=== PATIENT | male | born 1960 | race Caucasian/White ===

== ENCOUNTER 2016-10-05 05:45 | Observation (INO) | payer OTHER ==
[~2016-10-05] VITALS: Ht 175.3 cm; Wt 136.1 kg
[~2016-10-05 05:45] MED LIST: ATOR80TA PO; COUM6TAB PO; FURO20TA PO; GLUCTAB PO; IPRAAER IN; KLOR20TA6 PO; LOSA50TA PO; MEDR4PAK3 PO; PANT40IN3 PO; SPIR50TA21 PO; TAZT300C2 PO; WARF5TAB PO; Z.0.OXYGEN INH
[2016-10-05] MEDS ORDERED: MUPIROCIN 2% OINT 1 APPLIC/GM SYR NASAL SCH (06:15)
[2016-10-05] MEDS ORDERED: METOPROLOL TARTRATE 25 MG TAB PO PRN (06:15)
[2016-10-05] MEDS ORDERED: SODIUM CHLORID 0.9% 500 ML IV SCH (06:15)
[2016-10-05] MEDS ORDERED: NS 1000 ML IV SCH (06:15)
[2016-10-05] MEDS ORDERED: INSULIN HUMAN REGULAR 1,000 UNITS/10 ML VIAL SQ PRN (06:15)
[2016-10-05] MEDS ORDERED: LACTATED RINGER'S 1000 ML IV SCH (06:15)
[2016-10-05] MEDS ORDERED: LORazepam 1 MG TAB SL SCH ×2 (06:15→06:30)
[2016-10-05] MEDS ORDERED: NO Heparin, Lovenox, Coumadin at least 12 hours prior to procedure. XX PRN (06:30)
[2016-10-05] MEDS ORDERED: ceFAZolin 2 GM PREMIX 50 ML IV SCH (06:30)
[2016-10-05] MEDS ORDERED: POVIDONE IODINE 5% (ANTISEPSIS KIT) 4 APPLICATIONS EACH NARE SCH (06:30)
[2016-10-05] MEDS ORDERED: CHLORHEXIDINE GLUCONATE 2 % 1 PACK (2 CLOTHS) TOP SCH (06:30)
[2016-10-05] MEDS ORDERED: Hold AM Insulin & AM Hypoglycemic medications in diabetic patients XX PRN (06:30)
[2016-10-05] MEDS ORDERED: VANCOMYCIN 1000 MG/NS 250 ML IV SCH ×2 (06:30)
[2016-10-05 07:05] LABS: AUTOMATED NEUTROPHIL # 9.5 TH/MM3 (1.8-7.7); BASOPHIL # 0.1 TH/MM3 (0-0.2); BASOPHIL % 0.5 % (0.0-2.0); EOSINOPHIL # 0.3 TH/MM3 (0-0.4); EOSINOPHIL % 2.3 % (0.0-4.0); HEMATOCRIT 33.5 % (39.0-51.0); HEMO FLAGS DIFF FINAL; LYMPH % 13.3 % (9.0-44.0); LYMPHOCYTE # 1.7 TH/MM3 (1.0-4.8); MEAN CELL VOLUME 87.9 FL (80.0-100.0); MEAN CORPUSCULAR HEMOGLOBIN 29.6 PG (27.0-34.0); MEAN CORPUSCULAR HGB CONC 33.7 % (32.0-36.0); MONO % 7.9 % (0.0-8.0); PLATELET COUNT 250 TH/MM3 (150-450); RED BLOOD COUNT 3.81 MIL/MM3 (4.50-5.90); RED CELL DISTRIBUTION WIDTH 14.4 % (11.6-17.2); WHITE BLOOD COUNT 12.5 TH/MM3 (4.0-11.0)
[2016-10-05 07:14] LABS: APTT (PATIENT) 32.2 SEC (24.3-30.1); INTERNATIONAL NORMALIZED RATIO 2.3 RATIO; PROTHROMBIN TIME - PATIENT 26.4 SEC (9.8-11.6)
[2016-10-05 07:31] VITALS: BP 137/89; PULSE 89; RESP 18; TEMP 97.9; O2SAT 94
[2016-10-05 07:31] LABS: BICARBONATE 38.1 MEQ/L (21.0-32.0); POTASSIUM 4.1 MEQ/L (3.5-5.1)
[2016-10-05] MEDS ORDERED: WARF-23 PO (07:40)
[2016-10-05] MEDS ORDERED: METF500T PO (07:40)
[2016-10-05] MEDS ORDERED: LOSA50TA PO (07:40)
[2016-10-05] MEDS ORDERED: FURO1TAB62 PO (07:40)
[2016-10-05] MEDS ORDERED: SPIR50TA PO (07:40)
[2016-10-05] MEDS ORDERED: PANT40TA3 PO (07:40)
[2016-10-05] MEDS ORDERED: DILT60TA33 PO (07:40)
[2016-10-05] MEDS ORDERED: LIPI80TA PO (07:40)
--- NOTE | 2016-10-05 09:43 | HHI.HP ---
[facility] Primary [facility] Physician No Primary Care Physician Admission Diagnosis Diagnoses: Travel History International Travel<30 Days: No Contact w/Intl Traveler <30 Da: No Traveled to Known Affected Are: No Sepsis Criteria SIRS Criteria (2 or more): WBC > 75044, < 4000 or > 10% bands History of Present Illness Mr. Bellamy is a pleasant 56-year-old male with a history of hypertension , Hyperlipidemia, atrial fibrillation who was a scheduled for AV lam ablation with pacemaker insertion today. However patient has been having persistent shortness of breath and thus hospitalist service was requested to admit patient with regards to CHF/COPD exacerbation. Patient denies any chest pain, fever or chills. He does report shortness of breath on exertion. He denies any significant leg swelling. Denies any changes in bowel or bladder habits. He is on 2-3 L of oxygen at home. Review of Systems ROS Limitations: Other Except as stated in HPI: all other systems reviewed are Neg Past Family Social History Past Medical History Atrial fibrillation, diabetes mellitus, hypertension, hyperlipidemia, GERD Past Surgical History No significant surgical history Reported Medications Losartan 50 mg daily Warfarin 5 mg daily Metformin 500 mg twice a day Diltiazem 60 mg 3 times a day Atorvastatin 80 mg daily at bedtime Furosemide 20 mg twice a day Spironolactone 50 mg twice a day Pantoprazole 40 mg daily Allergies: Coded Allergies: No Known Allergies (Verified , 10/05/16) Family History Father had CHF. at age 52. Mother is still living but not well. Social History Patient has a history of smoking more than 40 years. Quit smoking 3 years ago. Denies using alcohol. Denies using illicit drugs. Physical Exam Vital Signs Vital Signs Date Time Temp Pulse Resp B/P Pulse Ox O2 Delivery O2 Flow Rate FiO2 10/05/16 07:31 97.9 89 18 137/89 94 Physical Exam GENERAL: This is a well-nourished, well-developed patient, in no apparent distress. SKIN: No rashes, ecchymoses or lesions. Warm and dry. HEAD: Atraumatic. Normocephalic. No temporal or scalp tenderness. EYES: Pupils equal round and reactive. No injection or drainage. ENT: Nose without bleeding, purulent drainage or septal hematoma. Airway patent. NECK: Trachea midline. No lymphadenopathy. Supple, nontender, no meningeal signs. CARDIOVASCULAR: Regular rate and rhythm without murmurs, gallops, or rubs. No JVD. RESPIRATORY: Poor air entry. No significant wheezing, crackles noted. GASTROINTESTINAL: Abdomen soft, non-tender, nondistended. No guarding. MUSCULOSKELETAL: Extremities without clubbing, cyanosis. Trace edema in proximity. NEUROLOGICAL: Awake and alert. Cranial nerves II through XII intact. No focal neurological deficits. Normal speech. Laboratory Laboratory Tests Test 10/05/16 06:44 White Blood Count 12.5 Red Blood Count 3.81 Hemoglobin 11.3 Hematocrit 33.5 Mean Corpuscular Volume 87.9 Mean Corpuscular Hemoglobin 29.6 Mean Corpuscular Hemoglobin 33.7 Concent Red Cell Distribution Width 14.4 Platelet Count 250 Mean Platelet Volume 8.6 Neutrophils (%) (Auto) 76.0 Lymphocytes (%) (Auto) 13.3 Monocytes (%) (Auto) 7.9 Eosinophils (%) (Auto) 2.3 Basophils (%) (Auto) 0.5 Neutrophils # (Auto) 9.5 Lymphocytes # (Auto) 1.7 Monocytes # (Auto) 1.0 Eosinophils # (Auto) 0.3 Basophils # (Auto) 0.1 CBC Comment DIFF FINAL Differential Comment Prothrombin Time 26.4 Prothromb Time International 2.3 Ratio Activated Partial 32.2 Thromboplast Time Sodium Level 135 Potassium Level 4.1 Chloride Level 92 Carbon Dioxide Level 38.1 Anion Gap 5 Blood Urea Nitrogen 16 Creatinine 0.87 Estimat Glomerular Filtration 90 Rate Random Glucose 104 Calcium Level 8.9 Blood Type A POSITIVE Antibody Screen NEGATIVE Result Diagram: 10/05/1644 10/05/1644 Imaging Last Impressions Chest X-Ray 10/05/16 0934 Signed Impressions: Service Date/Time: Wednesday, October 05, 2016 10:09 - CONCLUSION: No significant change compared to 04/09/16. Greg Franco MD Assessment and Plan Problem List: (1) COPD exacerbation ICD Code: J44.1 Status: Acute (2) Atrial fibrillation ICD Code: I48.91 Status: Chronic (3) Diabetes mellitus ICD Code: E11.9 Status: Acute Assessment and Plan Mr. Bellamy is a pleasant 56 year old male with a history of Afib, diastolic CHF who came to the hospital today for AV lam ablation and pacemaker placement. However, due to persistent shortness of breath, ablation/ pacemaker insertion was postponed and hospitalist service was asked to admit patient for CHF/COPD. - COPD exacerbation - Patient's symptoms are more consistent with COPD exacerbation. CXR, reviewed by me shows unremarkable findings except flattened diaphragm. - BNP is 49. - Will start patient on DuoNeb Q4hrs while awake and Q2HR PRN. - Start patient on a 5 day course of Prednisone 20mg BID. - Start patient on 7 day course of Levaquin 500mg Qday. - Diastolic CHF - stable at this point. - Will continue home medications including Lasix and Spironolactone. - Limited echo was unfortunately not good quality. No meaningful information obtained from Echo. Previously FAREED in 2014 showed EF 55-60%. - Diabetic mellitus - Patient takes metformin. We will continue metformin as we do not anticipate any imaging or work up that would require contrast. - Atrial fibrillation - Continue Diltiazem, Warfarin. INR 2.3. - Hyperlipidemia - Hypertension - Continue Losartan, Lipitor. Full code. Warfarin. INR 2.3 Yovana Centeno DO Oct 05, 2016 9:43 am
[2016-10-05] MEDS ORDERED: SODIUM CHLORIDE 0.9% FLUSH 5 ML FLUSH FLUSH PRN (09:45)
[2016-10-05] MEDS ORDERED: NALOXONE HCL 0.4 MG/ML AMP IV PRN (09:45)
[2016-10-05] MEDS ORDERED: ONDANSETRON HCL 4 MG/2 ML VIAL IVP PRN (09:45)
[2016-10-05] MEDS ORDERED: BISACODYL 10 MG SUPP PR PRN (09:45)
[2016-10-05] MEDS ORDERED: RESP: ALBUTEROL 2.5 MG/IPRATROPIUM 0.5 MG NEB (PRN) NEB (09:45)
[2016-10-05] MEDS ORDERED: MAGNESIUM HYDROXIDE SUSP 30 ML CUP PO PRN (09:45)
[2016-10-05] MEDS ORDERED: ACETAMINOPHEN 325 MG TAB PO PRN (09:45)
[2016-10-05 09:53] VITALS: O2SAT 95
--- NOTE | 2016-10-05 10:00 | EKG ---
Date Performed: 10/05/2016 Time Performed: 07:09:36 PTAGE: 56 years EKG: Sinus rhythm with frequent PVCs with PAC(s) Indeterminate axis Right bundle branch block Generalized low QRS volt ages Abnormal ECG PREVIOUS TRACING : 04/09/2016 13.44 DOCTOR: Sebastian Quiñonez Interpretating Date/Time 10/05/2016 09:58:12
--- NOTE | 2016-10-05 10:47 | RADRPT ---
EXAM DATE/TIME: 10/05/2016 10:09 [facility] COMPARISON: CHEST SINGLE AP, April 09, 2016, 14:14. INDICATIONS: Short of breath MEDICAL HISTORY: Chronic obstructive pulmonary disease. Congestive heart failure. SURGICAL HISTORY: None. ENCOUNTER: Initial ACUITY: 1 day PAIN SCORE: 0/10 LOCATION: Bilateral chest FINDINGS: The heart and mediastinal structures are stable. The pulmonary vascular pattern is normal. Mild inc reased bibasilar markings are stable. No new alveolar consolidation is noted. CONCLUSION: No significant change compared to 04/09/16. Greg Franco MD on October 05, 2016 at 10:32 Board Certified Radiologist. This report was verified electronically.
[2016-10-05 14:30] VITALS: BP 132/86; PULSE 55; RESP 18; TEMP 97.9; O2SAT 96
[2016-10-05] MEDS: DILTIAZEM HCL 60 MG TAB PO SCH ×2 (15:18→18:22)
--- NOTE | 2016-10-05 16:07 | ECHLIM ---
Study Study Date:10/05/2016 STUDY CONCLUSIONS SUMMARY - Procedure narrative: Transthoracic echocardiography. Image quality was very poor. Scanning was performed from the parasternal, apical, and subcostal acoustic windows. - Left ventricle: The cavity size was normal. Wall thickness was normal. Systolic function was very difficult to assess. Grossly left ventricular function appears mild to moderately reduced. Ejection fraction cannot be estimated. If clinically indicated, recommend radionuclide ventriculography for better assessment of ejection fraction. - Aortic valve: Poorly visualized. If LV function is below 40, please consider prescribing an ACEI or ARB or document rationale for non-use. PROCEDURE DATA STUDY STATUS: Elective. Procedure: Transthoracic echocardiography. Image quality was very poor. Scanning was performed from the parasternal, apical, and subcostal acoustic windows. Study completion: The patient tolerated the procedure well. Transthoracic echocardiography. M-mode, complete 2D, complete spectral Doppler, and color Doppler. Height: Height: 69in. Weight: Weight: 298.4lb. Body mass index: BMI: 44.2kg/m^2. Body surface area: BSA: 2.45m^2. Patient status: Inpatient. CARDIAC ANATOMY LEFT VENTRICLE: The cavity size was normal. Wall thickness was normal. Systolic function was very difficult to assess. Grossly left ventricular function appears mild to moderately reduced. Ejection fraction cannot be estimated. If clinically indicated, recommend radionuclide ventriculography for better assessment of ejection fraction. Images were inadequate for LV wall motion assessment. AORTIC VALVE: Poorly visualized. Doppler: Transvalvular velocity was within the normal range. There was no stenosis. No regurgitation. AORTA: Aortic root: The aortic root was normal in size. MITRAL VALVE: Structurally normal valve. Doppler: Transvalvular velocity was within the normal range. There was no evidence for stenosis. No regurgitation. LEFT ATRIUM: The atrium was normal in size. RIGHT VENTRICLE: The cavity size was normal. Wall thickness was normal. PULMONIC VALVE: Doppler: Transvalvular velocity was within the normal range. There was no evidence for stenosis. No regurgitation. TRICUSPID VALVE: Structurally normal valve. Doppler: Transvalvular velocity was within the normal range. No regurgitation. PULMONARY ARTERY: The main pulmonary artery was normal-sized. Systolic pressure was within the normal range. RIGHT ATRIUM: The atrium was normal in size. PERICARDIUM: There was no pericardial effusion. SYSTEMIC VEINS: Inferior vena cava: The vessel was normal in size. Patient weight: 298.4lb _Ejection fraction:_ 65-75% _Fractional shortening:_ 32% up to 5Kg 5-11.5Kg 11.6-22.9Kg 23-45Kg 45-57Kg Aortic Root 7-13 <17 13-22 17-27 17-27 LA diam 6-13 <23 24-38 33-47 37-40 RVID 10-17 7-15 7-15 7-18 8-17 LVIDd 12-22 <32 24-38 33-47 37-40 LVPW 2-4 3-6 5-7 6-8 7-8 IVS 2-4 3-6 5-7 6-8 7-8 BASIC MEASUREMENTS ADULT NORMAL Left ventricle LV internal dimension, ED, chordal level, *57.7 mm 43-52 PLAX LV internal dimension, ES, chordal level, *49.6 mm 23-38 PLAX Fractional shortening, chordal level, PLAX *14 % >29 LV posterior wall thickness, ED 10.1 mm IVS/LVPW ratio, ED 1.15 <1.3 Ventricular septum Septal thickness, ED 11.6 mm LEGEND: Mean values are shown as u=mean value. Asterisk (*) stubbs values outside specified normal range. Prepared and signed by Sterling Roberson [id number]
[2016-10-05] MEDS: RESP: ALBUTEROL 2.5 MG/IPRATROPIUM 0.5 MG NEB (SCH) NEB ×2 (17:24→21:11)
[2016-10-05] MEDS: SPIRONOLACTONE 50 MG TAB PO SCH (18:22)
[2016-10-05] MEDS: metFORMIN HCL 500 MG TAB PO SCH (18:22)
[2016-10-05 20:00] VITALS: BP 112/75; PULSE 90; PULSE 95; RESP 20; TEMP 97.4; O2SAT 94
[2016-10-05] MEDS: SODIUM CHLORIDE 0.9% FLUSH 5 ML FLUSH FLUSH SCH (20:33)
[2016-10-05] MEDS: ATORVASTATIN 80 MG TAB PO SCH (20:33)
[2016-10-05] MEDS: predniSONE 20 MG TAB PO SCH (20:33)
[2016-10-05 21:14] VITALS: O2SAT 94
[2016-10-05] MEDS: SODIUM CHLORID 0.9% 500 ML INJ 500 ML IV SCH (22:55)
[2016-10-06] VITALS (12 sets, daily range): BP systolic 99–140; BP diastolic 51–78; PULSE 86–125; RESP 18–20; TEMP 97.2–97.8; O2SAT 90–100
[2016-10-06] MEDS: RESP: ALBUTEROL 2.5 MG/IPRATROPIUM 0.5 MG NEB (PRN) NEB ×2 (04:15→23:20)
[2016-10-06] MEDS: RESP: ALBUTEROL 2.5 MG/IPRATROPIUM 0.5 MG NEB (SCH) NEB ×4 (07:57→20:27)
[2016-10-06] MEDS: DILTIAZEM HCL 60 MG TAB PO SCH ×3 (08:51→18:15)
[2016-10-06] MEDS: SPIRONOLACTONE 50 MG TAB PO SCH ×2 (08:51→18:14)
[2016-10-06] MEDS: predniSONE 20 MG TAB PO SCH ×2 (08:51→22:36)
[2016-10-06] MEDS: metFORMIN HCL 500 MG TAB PO SCH ×2 (08:52→18:15)
[2016-10-06] MEDS: LEVOFLOXACIN 500 MG TAB PO SCH (08:52)
[2016-10-06] MEDS: PANTOPRAZOLE SOD 40 MG DELAYED RELEASE TAB PO SCH (08:52)
[2016-10-06 08:54] LABS: BICARBONATE 37.8 MEQ/L (21.0-32.0); POTASSIUM 4.5 MEQ/L (3.5-5.1)
[2016-10-06 08:57] LABS: AUTOMATED NEUTROPHIL # 9.8 TH/MM3 (1.8-7.7); BASOPHIL # 0.1 TH/MM3 (0-0.2); BASOPHIL % 0.4 % (0.0-2.0); EOSINOPHIL % 0.3 % (0.0-4.0); HEMATOCRIT 34.5 % (39.0-51.0); HEMO FLAGS DIFF FINAL; LYMPHOCYTE # 1.3 TH/MM3 (1.0-4.8); MEAN CELL VOLUME 87.7 FL (80.0-100.0); MEAN CORPUSCULAR HEMOGLOBIN 29.2 PG (27.0-34.0); MEAN CORPUSCULAR HGB CONC 33.4 % (32.0-36.0); MONO % 5.9 % (0.0-8.0); NEUT % 82.4 % (16.0-70.0); PLATELET COUNT 231 TH/MM3 (150-450); RED BLOOD COUNT 3.93 MIL/MM3 (4.50-5.90); RED CELL DISTRIBUTION WIDTH 14.6 % (11.6-17.2); WHITE BLOOD COUNT 11.9 TH/MM3 (4.0-11.0)
[2016-10-06] MEDS: SODIUM CHLORIDE 0.9% FLUSH 5 ML FLUSH FLUSH SCH ×2 (09:00→22:41)
[2016-10-06] MEDS: LOSARTAN 50 MG TAB PO SCH (09:00)
[2016-10-06] MEDS ORDERED: PNEUMOCOCCAL POLYVALENT INJ 25 MCG/0.5 ML SYR IM ONE (10:00)
[2016-10-06] MEDS ORDERED: INFLUENZA VIRUS VACCINE (QUADRIVALENT) 0.5 ML SYR IM ONE (10:00)
--- NOTE | 2016-10-06 13:53 | HHI.PR ---
Subjective Remarks Follow-up for COPD exacerbation, atrial fibrillation. Patient is currently doing well sitting in his chair. Denies any chest pain, shortness of breath, fever or chills. His heart rate has been in the 120s range. Objective Vitals Vital Signs Date Time Temp Pulse Resp B/P Pulse Ox O2 Delivery O2 Flow Rate FiO2 10/06/16 08:00 97.8 124 20 140/72 92 10/06/16 08:00 95 Nasal Cannula 4.00 10/06/16 04:17 91 Nasal Cannula 4.00 10/06/16 04:00 97.6 93 20 106/77 94 10/06/16 00:00 97.7 118 18 120/78 90 10/05/16 21:14 94 Nasal Cannula 4.00 10/05/16 20:30 Nasal Cannula 10/05/16 20:00 90 10/05/16 20:00 97.4 95 20 112/75 94 10/05/16 14:30 97.9 55 18 132/86 96 I/O 10/05/16 10/05/16 10/05/16 10/06/16 10/06/16 10/06/16 07:00 15:00 23:00 07:00 15:00 23:00 Intake Total 240 ml Balance 240 ml Intake Oral 240 ml # Voids 2 1 # Bowel Movements 0 0 Result Diagram: 10/06/16 0757 10/06/16 0753 Imaging Last Impressions Chest X-Ray 10/05/16 0934 Signed Impressions: Service Date/Time: Wednesday, October 05, 2016 10:09 - CONCLUSION: No significant change compared to 04/09/16. Greg Franco MD Objective Remarks GENERAL: Alert, oriented 3, NAD. SKIN: Warm and dry. HEAD: Normocephalic. EYES: No scleral icterus. No injection or drainage. NECK: Supple, trachea midline. No JVD or lymphadenopathy. CARDIOVASCULAR: Irregularly irregular Without murmurs, gallops, or rubs. RESPIRATORY: Breath sounds equal bilaterally. No accessory muscle use. GASTROINTESTINAL: Abdomen soft, non-tender, nondistended. MUSCULOSKELETAL: No cyanosis. Trace edema. BACK: Nontender without obvious deformity. No CVA tenderness. Procedures None. A/P Problem List: (1) COPD exacerbation ICD Code: J44.1 Status: Acute (2) Atrial fibrillation ICD Code: I48.91 Status: Chronic (3) Diabetes mellitus ICD Code: E11.9 Status: Acute Assessment and Plan Mr. Bellamy is a pleasant 56 year old male with a history of Afib, diastolic CHF who came to the hospital today for AV lam ablation and pacemaker placement. However, due to persistent shortness of breath, ablation/ pacemaker insertion was postponed and hospitalist service was asked to admit patient for CHF/COPD. - COPD exacerbation - Patient's symptoms are more consistent with COPD exacerbation. CXR, reviewed by me shows unremarkable findings except flattened diaphragm. - BNP is 49. - Will start patient on DuoNeb Q4hrs while awake and Q2HR PRN. - Continue a 5 day course of Prednisone 20mg BID. - Continue 7 day course of Levaquin 500mg Qday. - Diastolic CHF - stable at this point. - Will continue home medications including Lasix and Spironolactone. - Limited echo was unfortunately not good quality. No meaningful information obtained from Echo. Previously FAREED in 2014 showed EF 55-60%. - Diabetic mellitus - Patient takes metformin. We will continue metformin as we do not anticipate any imaging or work up that would require contrast. - Atrial fibrillation - Continue Diltiazem, Warfarin. INR 2.3 yesterday. Will repeat INR tomorrow AM. - Will add metoprolol 25mg Q8hrs. Most COPD patients tolerate metoprolol well. Instructed pt to let his RN know if there is any problem with metoprolol. - If rate control is better, we can discharge patient home tomorrow 2016. - Hyperlipidemia - Hypertension - Continue Losartan, Lipitor. Full code. Warfarin. INR 2.3 on 10/05/2016. Repeat INR on 10/07/2016. Yovana Centeno DO Oct 06, 2016 1:53 pm
[2016-10-06] MEDS: METOPROLOL TARTRATE 25 MG TAB PO SCH ×2 (13:54→22:40)
[2016-10-06] MEDS: WARFARIN SOD 5 MG TAB PO SCH (18:14)
[2016-10-06] MEDS: ATORVASTATIN 80 MG TAB PO SCH (22:35)
[2016-10-07] VITALS (9 sets, daily range): BP systolic 101–123; BP diastolic 55–97; PULSE 96–124; RESP 18–21; TEMP 97.3–98; O2SAT 93–98
[2016-10-07] MEDS: METOPROLOL TARTRATE 25 MG TAB PO SCH ×3 (05:41→21:53)
[2016-10-07 07:39] LABS: INTERNATIONAL NORMALIZED RATIO 1.5 RATIO; PROTHROMBIN TIME - PATIENT 16.6 SEC (9.8-11.6)
[2016-10-07] MEDS: RESP: ALBUTEROL 2.5 MG/IPRATROPIUM 0.5 MG NEB (SCH) NEB ×4 (08:04→20:49)
[2016-10-07] MEDS: SODIUM CHLORIDE 0.9% FLUSH 5 ML FLUSH FLUSH SCH ×2 (11:26→21:00)
[2016-10-07] MEDS: SPIRONOLACTONE 50 MG TAB PO SCH (11:27)
[2016-10-07] MEDS: DILTIAZEM HCL 60 MG TAB PO SCH ×3 (11:28→17:27)
[2016-10-07] MEDS: predniSONE 20 MG TAB PO SCH ×2 (11:28→21:53)
[2016-10-07] MEDS: LOSARTAN 50 MG TAB PO SCH ×2 (11:28→11:35)
[2016-10-07] MEDS: metFORMIN HCL 500 MG TAB PO SCH ×2 (11:29→17:24)
[2016-10-07] MEDS: PANTOPRAZOLE SOD 40 MG DELAYED RELEASE TAB PO SCH (11:29)
[2016-10-07] MEDS: LEVOFLOXACIN 500 MG TAB PO SCH (11:29)
--- NOTE | 2016-10-07 16:28 | HHI.PR ---
Subjective Remarks Follow up for COPD, Afib. Mr. Bellamy is doing well. No chest pain, SOB, fever, chills. He still gets short of breath on exertion but feels his breathing is better. No heart palpitations. Objective Vitals Vital Signs Date Time Temp Pulse Resp B/P Pulse Ox O2 Delivery O2 Flow Rate FiO2 10/07/16 11:35 97.8 120 21 103/58 97 10/07/16 08:06 98 Nasal Cannula 4.00 10/07/16 08:00 97.6 120 20 101/55 97 10/07/16 04:17 97.3 118 18 104/72 95 10/06/16 23:42 97.2 122 18 119/63 94 10/06/16 22:41 Nasal Cannula 10/06/16 22:38 119 127/65 10/06/16 20:29 92 Nasal Cannula 4.00 10/06/16 20:25 97.4 123 18 100/60 100 10/06/16 20:20 122 I/O 10/06/16 10/06/16 10/06/16 10/07/16 10/07/16 10/07/16 07:00 15:00 23:00 07:00 15:00 23:00 Intake Total 480 ml 240 ml 120 ml Output Total 300 ml Balance 480 ml 240 ml -180 ml Intake Oral 480 ml 240 ml 120 ml Output Urine Total 300 ml # Voids 1 1 2 # Bowel Movements 0 1 1 0 Result Diagram: 10/06/16 0757 10/06/16 0753 Imaging Last Impressions Chest X-Ray 10/05/16 0934 Signed Impressions: Service Date/Time: Wednesday, October 05, 2016 10:09 - CONCLUSION: No significant change compared to 04/09/16. Greg Franco MD Objective Remarks GENERAL: Alert, oriented 3, NAD. SKIN: Warm and dry. HEAD: Normocephalic. EYES: No scleral icterus. No injection or drainage. NECK: Supple, trachea midline. No JVD or lymphadenopathy. CARDIOVASCULAR: Irregularly irregular Without murmurs, gallops, or rubs. RESPIRATORY: Breath sounds equal bilaterally. No accessory muscle use. GASTROINTESTINAL: Abdomen soft, non-tender, nondistended. MUSCULOSKELETAL: No cyanosis. Trace edema. BACK: Nontender without obvious deformity. No CVA tenderness. Procedures None. A/P Problem List: (1) COPD exacerbation ICD Code: J44.1 Status: Acute (2) Atrial fibrillation ICD Code: I48.91 Status: Chronic (3) Diabetes mellitus ICD Code: E11.9 Status: Acute Assessment and Plan Mr. Bellamy is a pleasant 56 year old male with a history of Afib, diastolic CHF who came to the hospital today for AV lam ablation and pacemaker placement. However, due to persistent shortness of breath, ablation/ pacemaker insertion was postponed and hospitalist service was asked to admit patient for CHF/COPD. - COPD exacerbation - Patient's symptoms are more consistent with COPD exacerbation. CXR, reviewed by me shows unremarkable findings except flattened diaphragm. - BNP is 49. - Continue patient on DuoNeb Q4hrs while awake and Q2HR PRN. - Continue a 5 day course of Prednisone 20mg BID. - Continue 7 day course of Levaquin 500mg Qday. - Diastolic CHF - stable at this point. - Hold Lasix and Aldactone for now. Will re-introduce if BP is improved. - Limited echo was unfortunately not good quality. No meaningful information obtained from Echo. Previously FAREED in 2015 showed EF 55-60%. - Diabetic mellitus - Patient takes metformin. We will continue metformin as we do not anticipate any imaging or work up that would require contrast. - Chronic Atrial fibrillation - Continue Diltiazem, On Warfarin. - Increase metoprolol to 50mg Q12hrs. - Increase Diltiazem from 60mg TID to 60mg Q6hrs. - Hyperlipidemia - Hypertension - Continue Losartan 25mg Qday, Lipitor. Full code. Warfarin Yovana Centeno DO Oct 07, 2016 16:28 Yovana Centeno DO Oct 07, 2016 4:28 pm
[2016-10-07] MEDS: WARFARIN SOD 5 MG TAB PO SCH (17:23)
[2016-10-07] MEDS: ATORVASTATIN 80 MG TAB PO SCH (21:53)
--- NOTE | 2016-10-08 00:20 | HHI.PR ---
Subjective Remarks Patient seen around 1:30PM. Follow up for Afib, COPD. He is doing well from respiratory standpoint. He is able to ambulate in the room, go to the bathroom well. His heart rate still remains high - in the 120s range. No fever, chills. Denies any chest pain. Objective Vitals Vital Signs Date Time Temp Pulse Resp B/P Pulse Ox O2 Delivery O2 Flow Rate FiO2 10/07/16 20:49 96 Nasal Cannula 3.00 10/07/16 20:45 Nasal Cannula 3.00 10/07/16 20:40 97.3 124 20 115/81 94 10/07/16 16:00 98.0 96 18 123/74 93 10/07/16 12:00 93 Nasal Cannula 3.00 10/07/16 11:35 97.8 120 21 103/58 97 10/07/16 08:06 98 Nasal Cannula 4.00 10/07/16 08:00 97.6 120 20 101/55 97 10/07/16 04:17 97.3 118 18 104/72 95 I/O 10/07/16 10/07/16 10/07/16 10/08/16 10/08/16 10/08/16 07:00 15:00 23:00 07:00 15:00 23:00 Intake Total 120 ml 960 ml 720 ml Output Total 300 ml 1000 ml Balance -180 ml -40 ml 720 ml Intake Oral 120 ml 960 ml 720 ml IV Total 0 ml Output Urine Total 300 ml 1000 ml # Voids 3 # Bowel Movements 0 0 1 Result Diagram: 10/06/16 0757 10/06/16 0753 Imaging Last Impressions Chest X-Ray 10/05/16 0934 Signed Impressions: Service Date/Time: Wednesday, October 05, 2016 10:09 - CONCLUSION: No significant change compared to 04/09/16. Greg Franco MD Objective Remarks GENERAL: Alert, oriented 3, NAD. SKIN: Warm and dry. HEAD: Normocephalic. EYES: No scleral icterus. No injection or drainage. NECK: Supple, trachea midline. No JVD or lymphadenopathy. CARDIOVASCULAR: Irregularly irregular Without murmurs, gallops, or rubs. RESPIRATORY: Breath sounds equal bilaterally. No accessory muscle use. GASTROINTESTINAL: Abdomen soft, non-tender, nondistended. MUSCULOSKELETAL: No cyanosis. Trace edema. BACK: Nontender without obvious deformity. No CVA tenderness. Procedures None. A/P Problem List: (1) COPD exacerbation ICD Code: J44.1 Status: Acute (2) Atrial fibrillation ICD Code: I48.91 Status: Chronic (3) Diabetes mellitus ICD Code: E11.9 Status: Acute Assessment and Plan Mr. Bellamy is a pleasant 56 year old male with a history of Afib, diastolic CHF who came to the hospital today for AV lam ablation and pacemaker placement. However, due to persistent shortness of breath, ablation/ pacemaker insertion was postponed and hospitalist service was asked to admit patient for CHF/COPD. - COPD exacerbation - Patient's symptoms are more consistent with COPD exacerbation. CXR, reviewed by me shows unremarkable findings except flattened diaphragm. - BNP is 49. - Continue patient on DuoNeb Q4hrs while awake and Q2HR PRN. - Continue a 5 day course of Prednisone 20mg BID. - Continue 7 day course of Levaquin 500mg Qday. - Patient is doing well from COPD standpoint. - Diastolic CHF - stable at this point. - Hold Lasix and Aldactone for now. Will re-introduce if BP is improved. - Limited echo was unfortunately not good quality. No meaningful information obtained from Echo. Previously FAREED in 2015 showed EF 55-60%. - Diabetic mellitus - Patient takes metformin. We will continue metformin as we do not anticipate any imaging or work up that would require contrast. - Chronic Atrial fibrillation - Continue Diltiazem, On Warfarin. - Increase metoprolol to 50mg Q12hrs. - Increase Diltiazem from 60mg TID to 60mg Q6hrs. - Hyperlipidemia - Hypertension - Continue Losartan 25mg Qday, Lipitor. Full code. Warfarin Discharge plan: Patient was admitted due to respiratory issues. Patient can be discharged. However, his heart rate remains in the 120s. I have attempted to call/text Dr. Jolly. Waiting to hear from him. Yovana Centeno DO Oct 08, 2016 12:20 am
[2016-10-08] MEDS: SODIUM CHLORID 0.9% 500 ML INJ 500 ML IV SCH (00:55)
[2016-10-08] MEDS: DILTIAZEM HCL 60 MG TAB PO SCH ×3 (00:58→12:00)
[2016-10-08] MEDS: RESP: ALBUTEROL 2.5 MG/IPRATROPIUM 0.5 MG NEB (PRN) NEB (02:27)
[2016-10-08 04:00] VITALS: BP 112/66; PULSE 104; RESP 20; TEMP 97.3; O2SAT 94
[2016-10-08 07:53] VITALS: O2SAT 93
[2016-10-08] MEDS: RESP: ALBUTEROL 2.5 MG/IPRATROPIUM 0.5 MG NEB (SCH) NEB ×3 (07:53→15:35)
[2016-10-08 08:00] VITALS: BP 122/88; PULSE 120; RESP 18; TEMP 97.4; O2SAT 94
[2016-10-08] MEDS ORDERED: LOSARTAN 25 MG TAB PO SCH (09:00)
[2016-10-08] MEDS: SODIUM CHLORIDE 0.9% FLUSH 5 ML FLUSH FLUSH SCH (09:00)
[2016-10-08] MEDS ORDERED: METOPROLOL TARTRATE 25 MG TAB PO SCH (09:00)
[2016-10-08] MEDS: LEVOFLOXACIN 500 MG TAB PO SCH (09:09)
[2016-10-08] MEDS: predniSONE 20 MG TAB PO SCH (09:09)
[2016-10-08] MEDS: PANTOPRAZOLE SOD 40 MG DELAYED RELEASE TAB PO SCH (09:11)
[2016-10-08] MEDS: metFORMIN HCL 500 MG TAB PO SCH (09:13)
[2016-10-08 12:00] VITALS: BP 90/62; PULSE 110; RESP 20; TEMP 97.4; O2SAT 96
[2016-10-08] MEDS ORDERED: CARD240C6 PO (15:30)
[2016-10-08] MEDS ORDERED: PRED20 PO (15:30)
[2016-10-08] MEDS ORDERED: LEVA500T PO (15:30)
--- NOTE | 2016-10-08 15:33 | HHI.DS ---
Discharge Summary Admission Date Oct 05, 2016 at 2:35 pm Discharge Date: Oct 08, 2016 Admitting Diagnosis COPD exacerbation (1) COPD exacerbation ICD Code: J44.1 (2) Atrial fibrillation ICD Code: I48.91 (3) Diabetes mellitus ICD Code: E11.9 Procedures None. Brief History - From Admission Mr. Bellamy is a pleasant 56-year-old male with a history of hypertension , Hyperlipidemia, atrial fibrillation who was a scheduled for AV lam ablation with pacemaker insertion today. However patient has been having persistent shortness of breath and thus hospitalist service was requested to admit patient with regards to CHF/COPD exacerbation. Patient denies any chest pain, fever or chills. He does report shortness of breath on exertion. He denies any significant leg swelling. Denies any changes in bowel or bladder habits. He is on 2-3 L of oxygen at home. CBC/BMP: 10/06/16 0757 10/06/16 0753 Significant Findings Laboratory Tests Test 10/06/16 10/06/16 10/07/16 07:53 07:57 06:10 Chloride Level 94 MEQ/L (98-107) Carbon Dioxide Level 37.8 MEQ/L (21.0-32.0) Anion Gap 4 MEQ/L (5-15) White Blood Count 11.9 TH/MM3 (4.0-11.0) Red Blood Count 3.93 MIL/MM3 (4.50-5.90) Hemoglobin 11.5 GM/DL (13.0-17.0) Hematocrit 34.5 % (39.0-51.0) Neutrophils (%) (Auto) 82.4 % (16.0-70.0) Neutrophils # (Auto) 9.8 TH/MM3 (1.8-7.7) Prothrombin Time 16.6 SEC (9.8-11.6) Imaging Last Impressions Chest X-Ray 10/05/16 0950 Signed Impressions: Service Date/Time: Wednesday, October 05, 2016 10:09 - CONCLUSION: No significant change compared to 04/09/16. Greg Franco MD PE at Discharge GENERAL: Alert, oriented 3, NAD. SKIN: Warm and dry. HEAD: Normocephalic. EYES: No scleral icterus. No injection or drainage. NECK: Supple, trachea midline. No JVD or lymphadenopathy. CARDIOVASCULAR: Irregularly irregular Without murmurs, gallops, or rubs. RESPIRATORY: Breath sounds equal bilaterally. No accessory muscle use. GASTROINTESTINAL: Abdomen soft, non-tender, nondistended. MUSCULOSKELETAL: No cyanosis. Trace edema. BACK: Nontender without obvious deformity. No CVA tenderness. Pt update on day of discharge Mr. Bellamy is doing well. He is ambulating better without getting short of breath. Discussed with Dr. Jolly who stated that patient's heart rate is difficult to control and thus he was planning to do AV lam ablation and place a pacemaker. Dr. Jolly agreed with our plan to discharge patient on long acting CCB and follow up with him in the office with regards to AV lam ablation and pacemaker placement. Hospital Course Mr. Bellamy is a pleasant 56 year old male with a history of Afib, diastolic CHF who came to the hospital today for AV lam ablation and pacemaker placement. However, due to persistent shortness of breath, ablation/ pacemaker insertion was postponed and hospitalist service was asked to admit patient for CHF/COPD. - COPD exacerbation - Patient's symptoms are more consistent with COPD exacerbation. CXR, reviewed by me shows unremarkable findings except flattened diaphragm. - BNP is 49. - Continue patient on DuoNeb Q4hrs while awake and Q2HR PRN. - Continue a 5 day course of Prednisone 20mg BID. - Continue 7 day course of Levaquin 500mg Qday. - Patient is doing well from COPD standpoint. - Diastolic CHF - stable at this point. - Hold Lasix and Aldactone for now. Will re-introduce if BP is improved. - Limited echo was unfortunately not good quality. No meaningful information obtained from Echo. Previously FAREED in 2015 showed EF 55-60%. - Diabetic mellitus - Patient takes metformin. We will continue metformin as we do not anticipate any imaging or work up that would require contrast. - Chronic Atrial fibrillation - Continue Diltiazem, On Warfarin. - Long acting CCB on discharge. Discussed with Dr. Jolly prior to discharging patient home. - Hyperlipidemia - Hypertension - Continue Losartan 25mg Qday, Lipitor. Full code. Warfarin Pt Condition on Discharge: Good Discharge Disposition: Discharge Home Discharge Time: > 30 minutes Discharge Instructions DIET: Follow Instructions for: Heart Healthy Diet Activities you can perform: Regular-No Restrictions Follow up Referrals: Cardiology - 3-5 Days with Antione Jolly MD New Medications: Diltiazem CD 24 HR (Cardizem CD 24 HR) 240 Mg Caper 240 MG PO BID Atrial fibrillation #30 Ref 0 CAP Levofloxacin (Levaquin) 500 Mg Tab 500 MG PO DAILY COPD #4 TAB Prednisone (Prednisone) 20 Mg Tab 20 MG PO BID Inflammation #2 TAB Continued Medications: Atorvastatin (Lipitor) 80 Mg Tab 80 MG PO HS Cholesterol Management #30 Ref 0 TAB Metformin (Metformin) 500 Mg Tab 500 MG PO BIDPC With meals Blood Sugar Management #60 Ref 0 TAB Pantoprazole (Pantoprazole) 40 Mg Tab 40 MG PO DAILY Reflux #30 Ref 0 TAB Warfarin (Warfarin) 5 Mg Tab 5 MG PO DAILY Blood Clot Prevention #30 Ref 0 TAB Discontinued Medications: Diltiazem (Cardizem) 60 Mg Tab 60 MG PO TID Angina #120 Ref 0 TAB Furosemide (Lasix) 20 Mg Tab 20 MG PO BID #60 Ref 0 TAB Losartan (Losartan) 50 Mg Tab 50 MG PO DAILY Blood Pressure Management #30 Ref 0 TAB Spironolactone (Spironolactone) 50 Mg Tab 50 MG PO BIDPC #60 Ref 0 TAB Yovana Centeno DO Oct 08, 2016 15:33
[2016-10-08 16:00] VITALS: BP 93/67; PULSE 100; RESP 20; TEMP 98; O2SAT 97
--- NOTE | 2016-10-12 09:27 | RSPPFT ---
DATE OF PROCEDURE: 10/06/16 COMMENTS: Spirometry demonstrates an FEv1 of 0.8 at 25% of predicted, FVC of 1.7 at 40%, FEV1/FVC ratio at 51%. The FEF 25-75 is 12% of predicted. Post-bronchodilator study demonstrated minimal improvements. Lung volumes were not completed. Flow volume loops suggest severe obstruction. IMPRESSION: 1. Severe obstructive airways disease. 2. Mild response to use of bronchodilator indicating some reversibility.
== END 2016-10-08 18:45 | disposition home or self-care (01) ==
LOC: HCAT 05:45 → HDIC 05:46 → N04B 14:35 → HCAT 15:01
PROVIDERS: ADMIT Hospitalist; ATTEND Hospitalist
DX: J44.1 Chronic obstructive pulmonary disease with (acute) exacerbation (principal); I48.2 Chronic atrial fibrillation; I11.0 Hypertensive heart disease with heart failure; I50.30 Unspecified diastolic (congestive) heart failure; E78.5 Hyperlipidemia, unspecified; E11.9 Type 2 diabetes mellitus without complications; K21.9 Gastro-esophageal reflux disease without esophagitis; Z79.01 Long term (current) use of anticoagulants; Z79.84 Long term (current) use of oral hypoglycemic drugs; Z87.891 Personal history of nicotine dependence; Z99.81 Dependence on supplemental oxygen; Z23 Encounter for immunization
CPT/HCPCS: 71010; 76937; 80048; 83880; 85025; 85610; 85730; 86850; 86900; 86901; 90686; 90732; 93005; 93308; 94060; 94640; 94664; G0378; J7512; Q2038